=== PATIENT | female | born 1950 | race Caucasian/White ===

== ENCOUNTER 2025-04-28 11:42 | Emergency (ER) | payer OTHER ==
[2025-04-28 11:47] VITALS: BP 146/57; PULSE 64; RESP 18; TEMP 98.2; BMI 21.8
[2025-04-28] MEDS ORDERED: ACETAMINOPHEN 500 MG TABLET (FP) ONE (12:27)
[2025-04-28] MEDS: ACETAMINOPHEN 500 MG TABLET (FP) PO ONE (12:29)
== END 2025-04-28 13:33 | disposition home or self-care (01) ==
LOC: JERFT 11:42
DX: S92.355A Nondisplaced fracture of fifth metatarsal bone, left foot, initial encounter for closed fracture (principal); X50.1XXA Overexertion from prolonged static or awkward postures, initial encounter
CPT/HCPCS: 73610-TC-LT-FY; 73630-TC-LT; 99283-25